=== PATIENT | female | born 1965 | race Caucasian/White ===

== ENCOUNTER 2017-07-09 16:19 | Emergency (ER) | payer BC ==
[2017-07-09] MEDS: MECLIZINE 12.5 MG TAB PO (17:30)
[2017-07-09] MEDS: ONDANSETRON (ODT) 4 MG TAB ODT (17:30)
== END 2017-07-09 19:05 | disposition home or self-care (01) ==
LOC: FTE 16:19
DX: R42 Dizziness and giddiness (principal)
CPT/HCPCS: 70450; 82962; 93005; 99284-25

== ENCOUNTER 2018-03-31 15:45 | Emergency (ER) | payer BC ==
[2018-03-31] MEDS: LIDOCAINE 1% (MDV) 20 ML INJ SC (18:07)
[2018-03-31] MEDS: NEOMYC/POLYMYX/BACIT 0.9 GM OINT TOP (19:21)
[2018-03-31] MEDS: NEOMYC/POLYMYX/BACIT 30 GM OINT TOP (19:21)
== END 2018-03-31 19:35 | disposition home or self-care (01) ==
LOC: FTE 15:45
DX: L60.0 Ingrowing nail (principal)
CPT/HCPCS: 11765; 99283-25